=== PATIENT | female | born 1965 | race Caucasian/White ===

== ENCOUNTER 2017-09-12 10:26 | Emergency (ER) | payer BC, OTHER ==
[2017-09-12] MEDS ORDERED: Norco 10/325 MG Tablet PO ONE (10:58)
[2017-09-12] MEDS ORDERED: Adacel Vial IM ONE ×2 (10:58→11:06)
[2017-09-12] MEDS ORDERED: Norco 10/325 MG Tablet ONE (11:06)
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
[2017-09-12 11:27] LABS: BASOPHIL % 0.1 % (0.0-0.4); Basophil (Absolute #) 0.01 (0-0.4); Granulocyte Absolute (ANC) 8.01 (1.4-6.9); Granulocytes % 83.8 % (36.0-66.0); Hematocrit 42.2 % (35-47); Hemoglobin 14.3 gm/dl (12.0-16.0); Lymphocyte (Absolute #) 1.02 (1.0-4.6); Lymphocytes % 10.7 % (24.0-44.0); Mean Cell Volume 91.9 fl (78-100); Mean Corpuscular Hemoglobin 31.2 pg (26-32); Mean Corpuscular Hgb Concent. 33.9 g/dl (32-36); Mean Platelet Volume 10.6 fl (6-9.5); Monocyte (Absolute #) 0.42 (0.0-1.3); Monocytes % 4.4 % (0.0-12.0); Platelet Count 204 K/mm3 (150-450); Red Blood Count 4.59 M/mm3 (4.1-5.4); Red Cell Distribution Width 12.7 % (11.5-14.0); White Blood Count 9.6 K/mm3 (4.0-10.5)
[2017-09-12 11:42] VITALS: BP 132/82; PULSE 97
[2017-09-12 11:46] LABS: ANION GAP 9.7 MEQ/L (5-15); BLOOD UREA NITROGEN 16 mg/dL (7-17); CHLORIDE 104 mmol/L (98-107); Calcium 9.1 mg/dL (8.4-10.2); Carbon Dioxide 28 mmol/L (22-30); Creatinine 1 0.67 mg/dL (0.52-1.04); Glucose 257 mg/dL (74-106); Potassium 4.7 mmol/L (3.5-5.1); SODIUM 138 mmol/L (137-145)
[2017-09-12 12:08] VITALS: O2SAT 95
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
== END 2017-09-12 12:23 | disposition home or self-care (01) ==
LOC: ED 10:26
DX: S29.9XXA Unspecified injury of thorax, initial encounter (principal); S80.12XA Contusion of left lower leg, initial encounter; R07.9 Chest pain, unspecified; M54.6 Pain in thoracic spine; M79.662 Pain in left lower leg; S20.319A Abrasion of unspecified front wall of thorax, initial encounter; V89.2XXA Person injured in unspecified motor-vehicle accident, traffic, initial encounter; Z79.899 Other long term (current) drug therapy
CPT/HCPCS: 36415; 71046; 72072; 73590; 80048; 84484; 85025; 90471; 90715; 93005; 99285; A9270-GY

== ENCOUNTER 2022-02-05 02:44 | Emergency (ER) | payer OTHER ==
[2022-02-05] MEDS ORDERED: Sodium Chloride 0.9% 1000 ML 1,000 ML IV STA (03:21)
[2022-02-05] MEDS ORDERED: Sodium Chloride 0.9% 1000 ML 1,000 ML ONE (03:29)
--- NOTE | 2022-02-05 03:30 | ERPHSYRPT ---
- History of Present Illness Time Seen by Provider: 02/05/22 02:55 Source: patient Exam Limitations: no limitations Patient Subjective Stated Complaint: pt states she was asleep and woke up and felt sick to stomach. said she felt shaky and decided to check blood sugar at t hat time, states blood sugar is 90 but is worried to go back to sleep. takes insulin glargine 35 units at night. Triage Nursing Assessment: pt is alert and oriented, states she has not had hypoglycemia like this before but feels better at this time. Physician History: Patient is a 56-year-old female presents to emergency department for evaluation of possible hypoglycemia. Patient is a diabetic. Patient took her 35 units of glargine yesterday evening. Patient awoke from her sleep as she was not feeling well. Patient states her stomach felt sick. Patient was shaky. She checked her glucose it was 90. Patient states her sugar usually does not run that low. Patient denies pain. Patient currently on Macrobid as treatment for a urinary t ract infection. No fever. No diarrhea. No vomiting. No rash. Patient otherwise feels well. She voices no other complaints or concerns at this time. Portions of this note were created with voice recognition technology. There may be grammatical, spelling, punctuation or sound alike errors Timing/Duration: today Severity: moderate Modifying Factors: Improves With: nothing Associated Symptoms: denies symptoms Allergies/Adverse Reactions: No Known Drug Allergies Allergy (Unverified 09/12/17 11:02) Home Medications: Citalopram Hydrobromide [ceLEXa] 40 mg PO DAILY 09/12/17 [History] Pravastatin Sodium 20 mg PO DAILY 09/12/17 [History] clonazePAM [Clonazepam] 0.5 mg PO DAILY 09/12/17 [History] estradioL [Estradiol] 1 ea PO DAILY 09/12/17 [History] Hx Tetanus, Diphtheria Vaccination/Date Given: No Hx Influenza Vaccination/Date Given: Yes Hx Pneumococcal Vaccination/Date Given: No Travel Risk - International Travel Have you traveled outside of the country in past 3 weeks: No - Coronavirus Screening Are you exhibiting any of the following symptoms?: No Close contact with a COVID-19 positive Pt in past 14-21 Days: No - Vaccine Status Have you recieved a Covid-19 vaccination: Yes 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 - Review of Systems Constitutional: No Symptoms, No Fever, No Chills Eyes: No Symptoms Ears, Nose, & Throat: No Symptoms Respiratory: No Symptoms, No Cough, No Dyspnea Cardiac: No Symptoms, No Chest Pain, No Edema, No Syncope Abdominal/Gastrointestinal: No Symptoms, No Abdominal Pain, No Nausea, No Vomiting, No Diarrhea Genitourinary Symptoms: No Symptoms, No Dysuria Musculoskeletal: No Symptoms, No Back Pain, No Neck Pain Skin: No Symptoms, No Rash Neurological: No Symptoms, No Dizziness, No Focal Weakness, No Sensory Changes Psychological: No Symptoms Endocrine: No Symptoms Hematologic/Lymphatic: No Symptoms Immunological/Allergic: No Symptoms All Other Systems: Reviewed and Negative - Past Medical History Pertinent Past Medical History: Yes Cardiac History: High Cholesterol Endocrine Medical History: Diabetes Type II Psycho-Social History: Depression - Past Surgical History Past Surgical History: Yes Female Surgical History: Hysterectomy Other Surgical History: nasal surgery - Social History Smoking Status: Current every day smoker How long have you smoked: 1 Exposure to second hand smoke: No Drug Use: none Patient Lives Alone: No - Nursing Vital Signs Nursing Vital Signs: Initial Vital Signs Temperature 98.2 F 02/05/22 02:51 Pulse Rate 77 02/05/22 02:51 Respiratory Rate 18 02/05/22 02:51 Blood Pressure 172/79 02/05/22 02:51 O2 Sat by Pulse Oximetry 97 02/05/22 02:51 Pain Scale Pain Intensity 0 - Physical Exam General Appearance: no apparent distress, alert Eye Exam: PERRL/EOMI, eyes nml inspection Ears, Nose, Throat Exam: normal ENT inspection, TMs normal, pharynx normal, moist mucous membranes Neck Exam: normal inspection, non-tender, supple, full range of motion Respiratory Exam: normal breath sounds, lungs clear, airway intact, No respiratory distress Cardiovascular Exam: regular rate/rhythm, normal heart sounds, normal peripheral pulses Gastrointestinal/Abdomen Exam: soft, normal bowel sounds, No tenderness, No mass Back Exam: normal inspection, normal range of motion, No CVA tenderness, No vertebral tenderness Extremity Exam: normal inspection, normal range of motion, pelvis stable Neurologic Exam: alert, oriented x 3, cooperative, normal mood/affect, nml cerebellar function, nml station & gait, sensation nml, No motor deficits Skin Exam: normal color, warm, dry, No rash Lymphatic Exam: No adenopathy SpO2 Interpretation: normal SpO2: 97 O2 Delivery: Room Air - Course Nursing assessment & vital signs reviewed: Yes Ordered Tests: Active Orders 24 hr Category Date Time Status Institutional Nutrition Consultant STAT Care 02/05/22 03:24 Active EKG-ER Only STAT Care 02/05/22 03:24 Active IV Insertion STAT Care 02/05/22 03:21 Active CBC W DIFF Stat Lab 02/05/22 03:21 Completed CMP Stat Lab 02/05/22 03:21 Completed POCT GLUCOSE Stat Lab 02/05/22 03:10 Completed POCT GLUCOSE Stat Lab 02/05/22 05:54 Completed TROPONIN Q4H Lab 02/05/22 03:30 Completed TROPONIN Q4H Lab 02/05/22 07:30 Ordered TROPONIN Q4H Lab 02/05/22 11:30 Ordered Medication Summary Generic Name Dose Route Start Last Admin Trade Name Freq PRN Reason Stop Dose Admin Magnesium Sulfate/Dextrose 100 mls @ 100 mls/hr 02/05/22 04:45 02/05/22 05:28 Magnesium 1 Gm / 100 Ml D5w IV 02/05/22 06:44 100 mls/hr Q1H KARLA Administration Discontinued Medications Generic Name Dose Route Start Last Admin Trade Name Freq PRN Reason Stop Dose Admin Sodium Chloride 1,000 mls @ 999 mls/hr 02/05/22 03:21 02/05/22 03:30 Sodium Chloride 0.9% 1000 Ml IV 02/05/22 04:21 999 mls/hr .Q1H1M STA Administration Sodium Chloride Confirm 02/05/22 03:29 Sodium Chloride 0.9% 1000 Ml Administered 02/05/22 03:30 Dose 1,000 mls @ ud .ROUTE .STK-MED ONE Potassium Chloride 40 meq 02/05/22 04:40 02/05/22 04:47 Potassium Chloride Tab 10 Meq Tab PO 02/05/22 04:41 40 meq STAT ONE Administration Potassium Chloride Confirm 02/05/22 04:45 Potassium Chloride Tab 10 Meq Tab Administered 02/05/22 04:46 Dose 40 meq PO .STK-MED ONE Lab/Rad Data: Laboratory Result Diagrams 02/05/22 03:21 02/05/22 03:21 Laboratory Results 02/05/22 02/05/22 02/05/22 Range/Units 05:54 03:30 03:21 WBC (4.0-10.5) x10^3/uL RBC (4.1-5.4) x10^6/uL Hgb (12.0-16.0) g/dL Hct (35-47) % MCV (78-100) fL MCH (26-32) pg MCHC (32-36) g/dL RDW (11.5-14.0) % Plt Count (150-450) x10^3/uL MPV (7.5-11.0) fL Gran % (36.0-66.0) % Immature Gran % (Auto) (0.00-0.4) % Nucleat RBC Rel Count (0.00-0.1) % Eos # (Auto) (0-0.5) x10^3/uL Immature Gran # (Auto) (0.00-0.03) x10^3u/L Absolute Lymphs (auto) (1.0-4.6) x10^3/uL Absolute Monos (auto) (0.0-1.3) x10^3/uL Absolute Nucleated RBC (0.00-0.01) x10^3u/L Lymphocytes % (24.0-44.0) % Monocytes % (0.0-12.0) % Eosinophils % (0.00-5.0) % Basophils % (0.0-0.4) % Absolute Granulocytes (1.4-6.9) x10^3/uL Basophils # (0-0.4) x10^3/uL Sodium 139 (137-145) mmol/L Potassium 3.2 L (3.5-5.1) mmol/L Chloride 104 (98-107) mmol/L Carbon Dioxide 29 (22-30) mmol/L Anion Gap 9.5 (5-15) MEQ/L BUN 9 (7-17) mg/dL Creatinine 0.59 (0.52-1.04) mg/dL Estimated GFR > 60.0 ML/MIN Glucose 112 H (74-106) mg/dL POC Glucometer 235 H (74 to 106) mg/dL Calcium 8.7 (8.4-10.2) mg/dL Total Bilirubin 0.60 (0.2-1.3) mg/dL AST 19 (14-36) U/L ALT 17 (0-35) U/L Alkaline Phosphatase 156 H (38-126) U/L Troponin I < 0.012 (0.000-0.034) ng/mL Serum Total Protein 6.6 (6.3-8.2) g/dL Albumin 3.9 (3.5-5.0) g/dL 02/05/22 02/05/22 Range/Units 03:21 03:10 WBC 10.3 (4.0-10.5) x10^3/uL RBC 4.59 (4.1-5.4) x10^6/uL Hgb 13.4 (12.0-16.0) g/dL Hct 39.7 (35-47) % MCV 86.5 (78-100) fL MCH 29.2 (26-32) pg MCHC 33.8 (32-36) g/dL RDW 13.2 (11.5-14.0) % Plt Count 280 (150-450) x10^3/uL MPV 9.4 (7.5-11.0) fL Gran % 75.5 H (36.0-66.0) % Immature Gran % (Auto) 0.5 H (0.00-0.4) % Nucleat RBC Rel Count 0.0 (0.00-0.1) % Eos # (Auto) 0.12 (0-0.5) x10^3/uL Immature Gran # (Auto) 0.05 H (0.00-0.03) x10^3u/L Absolute Lymphs (auto) 1.74 (1.0-4.6) x10^3/uL Absolute Monos (auto) 0.55 (0.0-1.3) x10^3/uL Absolute Nucleated RBC 0.00 (0.00-0.01) x10^3u/L Lymphocytes % 17.0 L (24.0-44.0) % Monocytes % 5.4 (0.0-12.0) % Eosinophils % 1.2 (0.00-5.0) % Basophils % 0.4 (0.0-0.4) % Absolute Granulocytes 7.75 H (1.4-6.9) x10^3/uL Basophils # 0.04 (0-0.4) x10^3/uL Sodium (137-145) mmol/L Potassium (3.5-5.1) mmol/L Chloride (98-107) mmol/L Carbon Dioxide (22-30) mmol/L Anion Gap (5-15) MEQ/L BUN (7-17) mg/dL Creatinine (0.52-1.04) mg/dL Estimated GFR ML/MIN Glucose (74-106) mg/dL POC Glucometer 128 H (74 to 106) mg/dL Calcium (8.4-10.2) mg/dL Total Bilirubin (0.2-1.3) mg/dL AST (14-36) U/L ALT (0-35) U/L Alkaline Phosphatase (38-126) U/L Troponin I (0.000-0.034) ng/mL Serum Total Protein (6.3-8.2) g/dL Albumin (3.5-5.0) g/dL - Progress Progress: improved Progress Note: Patient reassessed. She is well. Vital stable. Potassium replaced. Patient received magnesium. Glucose up to 235. Patient voices no other complaints or concerns at this time. Will discharge home. Patient agrees to follow-up with primary care doctor within 48 hours for evaluation. Portions of this note were created with voice recognition technology. There may be grammatical, spelling, punctuation or sound alike errors 02/05/22 06:00 Counseled pt/family regarding: lab results, diagnosis, need for follow-up - Departure Departure Disposition: Home Clinical Impression: Hypokalemia Condition: Stable Critical Care Time: No Referrals: PATRICK CADE MD [Primary Care Provider] - Follow up/PCP as directed Additional Instructions: Discharge/Care Plan NATTY HACKETT was seen on 02/05/22 in the Emergency Room. The patient was counseled regarding Diagnosis,Lab results, Imaging studies, need for follow up and when to return to the Emergency Room. Prescriptions given: Discharge Note I have spoken with the patient and/or caregivers. I have explained the patient's condition, diagnosis and treatment plan based on the information available to me at this time. I have answered the patient's and/or caregiver's questions and addressed any concerns. The patient and/or caregivers have as good understanding of the patient's diagnosis, condition and treatment plan as can be expected at this point. The vital signs have been stable. The patient's condition is stable and appropriate for discharge from the emergency department. The patient will pursue further outpatient evaluation with the primary care physician or other designated or consulting physician as outlined in the dis charge instructions. The patient and/or caregivers are agreeable to this plan of care and follow-up instructions have been explained in detail. The patient and/or caregivers have received these instruction. The patient/and or caregivers are aware that any significant change in condition or worsening of symptoms should prompt an immediate return to this or the closest emergency department or call 911.
[2022-02-05 04:02] LABS: Absolute Neutrophil Ct (ANC) 7.75 x10^3/uL (1.4-6.9); Basophil (Absolute #) 0.04 x10^3/uL (0-0.4); Eosinophil % 1.2 % (0.00-5.0); Eosinophil (Absolute #) 0.12 x10^3/uL (0-0.5); Hematocrit 39.7 % (35-47); Hemoglobin 13.4 g/dL (12.0-16.0); Lymphocyte (Absolute #) 1.74 x10^3/uL (1.0-4.6); Mean Cell Volume 86.5 fL (78-100); Mean Corpuscular Hemoglobin 29.2 pg (26-32); Mean Corpuscular Hgb Concent. 33.8 g/dL (32-36); Mean Platelet Volume 9.4 fL (7.5-11.0); Monocyte (Absolute #) 0.55 x10^3/uL (0.0-1.3); Monocytes % 5.4 % (0.0-12.0); Neutrophil % 75.5 % (36.0-66.0); Platelet Count 280 x10^3/uL (150-450); Red Blood Count 4.59 x10^6/uL (4.1-5.4); Red Cell Distribution Width 13.2 % (11.5-14.0); White Blood Count 10.3 x10^3/uL (4.0-10.5)
[2022-02-05 04:03] LABS: ALBUMIN 3.9 g/dL (3.5-5.0); ALKALINE PHOSPHATASE 156 U/L (38-126); ANION GAP 9.5 MEQ/L (5-15); BLOOD UREA NITROGEN 9 mg/dL (7-17); CHLORIDE 104 mmol/L (98-107); Calcium 8.7 mg/dL (8.4-10.2); Carbon Dioxide 29 mmol/L (22-30); Creatinine 1 0.59 mg/dL (0.52-1.04); EST GLOMERULAR FILTRATION RATE > 60.0 ML/MIN; Glucose 112 mg/dL (74-106); Potassium 3.2 mmol/L (3.5-5.1); SGOT/AST 19 U/L (14-36); SGPT/ALT 17 U/L (0-35); SODIUM 139 mmol/L (137-145); Total Protein 6.6 g/dL (6.3-8.2)
[2022-02-05] MEDS ORDERED: Klor Con PO ONE ×2 (04:40→04:45)
[2022-02-05] MEDS ORDERED: Magnesium 1 Gm / 100 Ml D5W*** 100 ML IV ONE ×2 (04:45→05:26)
[2022-02-05] MEDS: Magnesium 1 Gm / 100 Ml D5W*** 100 ML IV SCH ×2 (04:46→05:28)
[2022-02-05 06:02] VITALS: O2SAT 97
[2022-02-05 06:03] VITALS: BP 151/85; PULSE 85
== END 2022-02-05 06:11 | disposition home or self-care (01) ==
LOC: ED 02:44
DX: E87.6 Hypokalemia (principal); R11.0 Nausea; E78.5 Hyperlipidemia, unspecified; E11.9 Type 2 diabetes mellitus without complications; Z72.0 Tobacco use; Z79.4 Long term (current) use of insulin; Z79.899 Other long term (current) drug therapy
CPT/HCPCS: 36000; 36415; 80053; 82947; 84484; 85025; 93005; 93041; 96374; 96375; 99284; J3475; A9270-GY

== ENCOUNTER 2022-09-20 04:55 | Emergency (ER) | payer OTHER ==
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
[2022-09-20] MEDS ORDERED: NORCO 5/325 MG PO ONE (06:40)
[2022-09-20] MEDS ORDERED: Rocephin 1000 MG INJ IM ONE (06:40)
[2022-09-20] MEDS ORDERED: Rocephin 1000 MG INJ ONE (07:03)
[2022-09-20] MEDS ORDERED: NORCO 5/325 MG ONE (07:03)
[2022-09-20 07:15] VITALS: PULSE 83
[2022-09-20 07:40] LABS: INFLUENZA A NEGATIVE (NEGATIVE); INFLUENZA B NEGATIVE (NEGATIVE); RESPIRATORY SYNCTIAL VIRUS NEGATIVE (NEGATIVE); SARS-CoV-2 Xpert Express NEGATIVE (NEGATIVE)
--- NOTE | 2022-09-20 08:17 | XRAY ---
CLINICAL HISTORY:facial swelling, pain, eye drainage COMPARISON:None; TECHNIQUES:Axial continuous CT cuts were taken through the paranasal sinuses with multiplanar reconstructions without intravenous contrast injection; FINDINGS: Clear all scanned paranasal sinuses including the frontal, ethmoidal, maxillary, and sphenoid sinuses with no evidence of mucosal thickening or air/fluid levels. Small Ora cells on the left side. The nasal septum is minimally deviated to the left side. Hypertrophied inferior nasal turbinates. Osteomeatal complexes and sphenoethmoidal recesses are patent bilaterally. Patent nasopharynx. Bone window settings showed no evidence of fractures or destructive lesions. The examined brain shows a left occipital area of encephalomalacia/old infarction (stable). Clinical correlation and CT brain are recommended. IMPRESSION: 1-No significant sinusitis. 2-Minimal nasal septum deviation. 3-Hypertrophied inferior nasal turbinates. Electronically Signed by: Deidra Mandujano MD. (09/20/2022 07:14:36 FISHING ACCESSORIES MAKER)
--- NOTE | 2022-09-20 09:16 | XRAY ---
CLINICAL HISTORY:pain COMPARISON:None; TECHNIQUES:Axial sections of CT head examination were obtained without intravenous contrast administration. Reformatted coronal and sagittal images were acquired; FINDINGS: No acute intracranial hemorrhage. Chronic infarct in the left occipito-temporal region resulting in ex-vacuo dilatation of the occipital horn of the left lateral ventricle. Brain parenchymal attenuation is normal. Gale[place]-white matter differentiation is intact. No midline shift or mass effect. Pineal region calcification was seen. Visualized paranasal sinuses appear unremarkable. No definite calvarial abnormality is seen. IMPRESSION: 1. No definite acute intracranial pathology. 2. 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 Electronically Signed by: Deidra Mandujano MD. (09/20/2022 08:11:41 CUSTOMER MANAGER)
[2022-09-20 09:19] VITALS: BP 146/92; O2SAT 93
== END 2022-09-20 09:31 | disposition home or self-care (01) ==
LOC: ED 04:55
DX: R51.9 Headache, unspecified (principal); H57.13 Ocular pain, bilateral; E78.5 Hyperlipidemia, unspecified; E11.9 Type 2 diabetes mellitus without complications; Z79.85 Long-term (current) use of injectable non-insulin antidiabetic drugs; Z79.84 Long term (current) use of oral hypoglycemic drugs; Z79.4 Long term (current) use of insulin; Z79.899 Other long term (current) drug therapy; Z72.0 Tobacco use; Z79.891 Long term (current) use of opiate analgesic
CPT/HCPCS: 0241U; 70450; 70486; 96372; 99283; J0696; A9270-GY